=== PATIENT | male | born 1990 | race Caucasian/White ===

== ENCOUNTER 2022-04-17 16:11 | Emergency (ER) | payer MEDICAID, OTHER ==
[~2022-04-17] VITALS: Ht 188 cm; Wt 78.2 kg
[2022-04-17 16:33] VITALS: BP 126/81
[2022-04-17] MEDS ORDERED: IBUPROFEN 600 MG TAB PO ONE (16:55)
[2022-04-17] MEDS ORDERED: IBUP-2213 PO (17:37)
[2022-04-17 18:01] VITALS: BP 126/81
--- NOTE | 2022-04-17 18:01 | NUR ---
Patient discharged with v/s stable. Written and verbal after care instructions given and explained. Patient alert, oriented and verbalized understanding of instructions. Ambulatory with steady gait. All questions addressed prior to discharge. ID band removed. Patient advised to follow up with PMD. Rx of ibuprofen (sent) given. Patient educated on indication of medication including possible reaction and side effects. Opportunity to ask questions provided and answered.
== END 2022-04-17 18:01 | disposition home or self-care (01) ==
LOC: MED 16:11
DX: S90.32XA Contusion of left foot, initial encounter (principal); Z79.899 Other long term (current) drug therapy; W22.8XXA Striking against or struck by other objects, initial encounter; Y93.89 Activity, other specified; Y92.89 Other specified places as the place of occurrence of the external cause; Y99.8 Other external cause status
CPT/HCPCS: 73630; 99283

== ENCOUNTER 2022-08-30 16:36 | Emergency (ER) | payer OTHER ==
[~2022-08-30] VITALS: Ht 175.3 cm; Wt 70.3 kg
[~2022-08-30 16:36] MED LIST: IBUP-2213 PO
[2022-08-30 16:56] VITALS: BP 119/66
[2022-08-30] MEDS ORDERED: IBUP-2213 PO (17:47)
[2022-08-30] MEDS ORDERED: BACI-416 TP (17:47)
[2022-08-30] MEDS ORDERED: SULF-58 PO (17:47)
[2022-08-30] MEDS ORDERED: BACITRACIN OINT 500 UNITS/GM PKT TP ONE (18:07)
[2022-08-30 18:28] VITALS: BP 119/66
== END 2022-08-30 18:31 | disposition home or self-care (01) ==
LOC: MED 16:36
DX: S91.302A Unspecified open wound, left foot, initial encounter (principal); Z79.899 Other long term (current) drug therapy; W22.8XXA Striking against or struck by other objects, initial encounter; Y93.89 Activity, other specified; Y92.098 Other place in other non-institutional residence as the place of occurrence of the external cause; Y99.8 Other external cause status
CPT/HCPCS: 90471; 90715; 99283

== ENCOUNTER 2022-10-31 16:31 | Emergency (ER) | payer OTHER ==
[~2022-10-31] VITALS: Ht 188 cm; Wt 77.3 kg
[~2022-10-31 16:31] MED LIST changes: +BACI-418 TP; +SULF-58 PO
[2022-10-31 16:42] VITALS: BP 141/81; PULSE 69; RESP 20; TEMP 97.5; O2SAT 97
[2022-10-31] MEDS ORDERED: IBUP-2213 PO (17:44)
== END 2022-10-31 18:01 | disposition home or self-care (01) ==
LOC: MED 16:31
DX: S63.92XA Sprain of unspecified part of left wrist and hand, initial encounter (principal); R03.0 Elevated blood-pressure reading, without diagnosis of hypertension; Z79.2 Long term (current) use of antibiotics; Z79.1 Long term (current) use of non-steroidal anti-inflammatories (NSAID); X58.XXXA Exposure to other specified factors, initial encounter; Y92.89 Other specified places as the place of occurrence of the external cause; Y93.89 Activity, other specified; Y99.8 Other external cause status
CPT/HCPCS: 73110; 73130; 99284

== ENCOUNTER 2023-03-30 13:39 | Emergency (ER) | payer OTHER ==
[~2023-03-30] VITALS: Ht 188 cm; Wt 70.4 kg
[2023-03-30 13:48] VITALS: BP 120/65; PULSE 65; RESP 20; TEMP 99.1; O2SAT 98
[2023-03-30] MEDS ORDERED: KETOROLAC 30 MG/ML VIAL IM ONE (14:35)
[2023-03-30] MEDS ORDERED: NAPR-54 PO (15:23)
== END 2023-03-30 16:12 | disposition home or self-care (01) ==
LOC: MED 13:39
DX: S92.511A Displaced fracture of proximal phalanx of right lesser toe(s), initial encounter for closed fracture (principal); Z79.1 Long term (current) use of non-steroidal anti-inflammatories (NSAID); Z79.2 Long term (current) use of antibiotics; W22.8XXA Striking against or struck by other objects, initial encounter; Y93.02 Activity, running; Y92.009 Unspecified place in unspecified non-institutional (private) residence as the place of occurrence of the external cause; Y99.8 Other external cause status
CPT/HCPCS: 73630; 96372; 99283; J1885

== ENCOUNTER 2023-06-24 09:48 | Emergency (ER) | payer OTHER ==
[~2023-06-24] VITALS: Ht 188 cm; Wt 74.4 kg
[~2023-06-24 09:48] MED LIST changes: +CEPH-588 PO; +NAPR-54 PO; +SULF-59 PO
[2023-06-24 10:08] VITALS: BP 108/63; PULSE 57; RESP 16; TEMP 97.9; O2SAT 98
== END 2023-06-24 11:44 | disposition home or self-care (01) ==
LOC: MED 09:48
DX: L02.31 Cutaneous abscess of buttock (principal); Z48.00 Encounter for change or removal of nonsurgical wound dressing; Z79.899 Other long term (current) drug therapy
CPT/HCPCS: 99281

== ENCOUNTER 2023-12-25 22:15 | Emergency (ER) | payer OTHER ==
[~2023-12-25] VITALS: Ht 188 cm; Wt 73.9 kg
[~2023-12-25 22:15] MED LIST changes: +NAPR-337 PO; -NAPR-54 PO
[2023-12-25 22:26] VITALS: BP 124/77; PULSE 73; RESP 16; TEMP 98.2; O2SAT 99
[2023-12-25] MEDS: LIDOCAINE MPF 1% 10 MG/ML VIAL INJ ONE (23:13)
[2023-12-25] MEDS ORDERED: CEPH500C16 PO (23:32)
[2023-12-25 23:40] VITALS: BP 124/77; PULSE 73; RESP 16; TEMP 98.2; O2SAT 99
== END 2023-12-25 23:40 | disposition home or self-care (01) ==
LOC: MED 22:15
DX: L02.31 Cutaneous abscess of buttock (principal); L03.317 Cellulitis of buttock; R03.0 Elevated blood-pressure reading, without diagnosis of hypertension; Z79.899 Other long term (current) drug therapy
CPT/HCPCS: 10060; 99284; J2001